=== PATIENT | female | born 1975 | race Caucasian/White ===

== ENCOUNTER 2018-07-29 06:42 | Day surgery (SDC) | payer OTHER ==
[~2018-07-29] VITALS: Ht 162.6 cm; Wt 62.0 kg
[~2018-07-29 06:42] MED LIST: CARI1CAP PO; LEVO175T4 PO; SODIUM CHLORIDE 0.9% 1,000 ML IV ONE
[2018-07-29] MEDS ORDERED: LIDOCAINE 2% 30 ML JELLY TP ONE (06:43)
[2018-07-29] MEDS ORDERED: ALBUTEROL SULFATE 2.5 MG/0.5 ML NEB SOLUTION NEB ONE (06:43)
[2018-07-29] MEDS ORDERED: BENZOCAINE 20% 50 MCG/SPRAY 57 GM TP ONE (06:43)
[2018-07-29] MEDS ORDERED: LIDOCAINE 4% 50 ML SOLUTION TP ONE (06:43)
[2018-07-29] MEDS ORDERED: FentaNYL CITRATE-PF 100 MCG/2 ML VIAL ONE (07:56)
[2018-07-29] MEDS ORDERED: MIDAZOLAM HCL 2 MG/2 ML VIAL ONE (07:56)
[2018-07-29] MEDS ORDERED: MethylPREDNISolone SOD SUCC 125 MG/2 ML VIAL IVP ONE (09:00)
[2018-07-29] MEDS ORDERED: OXYGEN THERAPY IH SCH (20:00)
== END 2018-07-29 10:05 | disposition home or self-care (01) ==
LOC: SURGERY 06:42
PROVIDERS: ATTEND Internal Medicine Critical Care Medicine
DX: J38.4 Edema of larynx (principal); B37.0 Candidal stomatitis; Z98.890 Other specified postprocedural states; Z72.89 Other problems related to lifestyle
CPT/HCPCS: 31623; 31624; 71045; 87015; 87070; 87101; 87206; 87220; 88108; 88312; J2250; J2930; J3010; J7030